=== PATIENT | female | born 1935 | race Two or more races ===

== ENCOUNTER 2021-05-04 10:38 | Inpatient (IN) | payer MEDICAID ==
[~2021-05-04] VITALS: Ht 170.2 cm; Wt 68.0 kg
--- NOTE | 2021-05-04 10:58 | PHYS DOC ---
General Adult EDM: Chief Complaint: CHEST PAIN HPI: HPI: Patient is a 86 year old female who present to ER for evaluation right-sided flank pain that been going on for 2 weeks. Patient said the pain gone away but then she still having chest pain last night that radiated to her jaw area. Patient denies any cough or fever patient denies any nausea vomiting at this time patient had no history of diabetic or hypertension, no previous history of coronary artery disease. Review of Systems: Review of Systems: Constitutional: Denies fever or chills. [] Eyes: Denies change in visual acuity. [] HENT: Denies nasal congestion or sore throat. [] Respiratory: Denies cough or shortness of breath. [] Cardiovascular: Denies chest pain or edema. [] GI: Denies abdominal pain, nausea, vomiting, bloody stools or diarrhea. [] : Denies dysuria. [] Musculoskeletal: Denies back pain or joint pain. [] Integument: Denies rash. [] Neurologic: Denies headache, focal weakness or sensory changes. [] Endocrine: Denies polyuria or polydipsia. [] Lymphatic: Denies swollen glands. [] Psychiatric: Denies depression or anxiety. [] Heart Score: C/O Chest Pain: Yes HEART Score for Chest Pain: HEART Score for Chest Pain Response (Comments) Value History Slighlty/Non-Suspicious 0 ECG Nonspecific Repolarizatio 1 Age > 65 2 Risk Factors 1 or 2 Risk Factors 1 Troponin < Normal Limit 0 Total 4 Risk Factors: Risk Factors: DM, Current or recent (<one month) smoker, HTN, HLP, family history of CAD, obesity. Risk Scores: Score 0 - 3: 2.5% MACE over next 6 weeks - Discharge Home Score 4 - 6: 20.3% MACE over next 6 weeks - Admit for Clinical Observation Score 7 - 10: 72.7% MACE over next 6 weeks - Early Invasive Strategies Physical Exam: PE: Constitutional: Well developed, well nourished, no acute distress, non-toxic appearance. [] HENT: Normocephalic, atraumatic, bilateral external ears normal, oropharynx moist, no oral exudates, nose normal. [] Eyes: PERRLA, EOMI, conjunctiva normal, no discharge. [] Neck: Normal range of motion, no tenderness, supple, no stridor. [] Cardiovascular:Heart rate regular rhythm, no murmur [] Lungs & Thorax: Bilateral breath sounds clear to auscultation [] Abdomen: Bowel sounds normal, soft, There is tenderness in RLQ AREA, no masses, no pulsatile masses. [] Skin: Warm, dry, no erythema, no rash. [] Back: No tenderness, RIGHT CVA tenderness. [] Extremities: No tenderness, no cyanosis, no clubbing, ROM intact, no edema. [] Neurologic: Alert and oriented X 3, normal motor function, normal sensory function, no focal deficits noted. [] Psychologic: Affect normal, judgement normal, mood normal. [] Current Patient Data: Labs: Laboratory Tests Test 05/04/21 10:50 05/04/21 11:28 05/04/21 12:54 05/04/21 14:30 White Blood Count 5.7 x10^3/uL Red Blood Count 3.89 x10^6/uL Hemoglobin 12.5 g/dL Hematocrit 36.3 % Mean Corpuscular Volume 93 fL Mean Corpuscular Hemoglobin 32 pg Mean Corpuscular Hemoglobin Concent 35 g/dL Red Cell Distribution Width 12.6 % Platelet Count 323 x10^3/uL Neutrophils (%) (Auto) 69 % Lymphocytes (%) (Auto) 19 % Monocytes (%) (Auto) 11 % Eosinophils (%) (Auto) 0 % Basophils (%) (Auto) 0 % Neutrophils # (Auto) 3.9 x10^3/uL Lymphocytes # (Auto) 1.1 x10^3/uL Monocytes # (Auto) 0.6 x10^3/uL Eosinophils # (Auto) 0.0 x10^3/uL Basophils # (Auto) 0.0 x10^3/uL Sodium Level 126 mmol/L Potassium Level 3.7 mmol/L Chloride Level 90 mmol/L Carbon Dioxide Level 26 mmol/L Anion Gap 10 Blood Urea Nitrogen 16 mg/dL Creatinine 0.9 mg/dL Estimated GFR (Cockcroft-Gault) 59.2 BUN/Creatinine Ratio 18 Glucose Level 124 mg/dL Calcium Level 9.4 mg/dL Magnesium Level 2.1 mg/dL Total Bilirubin 0.6 mg/dL Aspartate Amino Transf (AST/SGOT) 22 U/L Alanine Aminotransferase (ALT/SGPT) 29 U/L Alkaline Phosphatase 84 U/L Troponin I Quantitative < 0.017 ng/mL < 0.017 ng/mL FN-Cwm-[id number]-Type Natriuretic Peptide 151 pg/mL Total Protein 7.0 g/dL Albumin 3.8 g/dL Albumin/Globulin Ratio 1.2 Triglycerides Level 107 mg/dL Cholesterol Level 223 mg/dL LDL Cholesterol, Calculated 146 mg/dL VLDL Cholesterol, Calculated 21 mg/dL Non-HDL Cholesterol Calculated 167 mg/dL HDL Cholesterol 56 mg/dL Cholesterol/HDL Ratio 4.0 Lipase 184 U/L Urine Collection Type Void Urine Color Yellow Urine Clarity Clear Urine pH 7.0 Urine Specific [place] <=1.005 Urine Protein Negative mg/dL Urine Glucose (UA) Negative mg/dL Urine Ketones (Stick) Negative mg/dL Urine Blood Negative Urine Nitrite Negative Urine Bilirubin Negative Urine Urobilinogen Dipstick 0.2 mg/dL Urine Leukocyte Esterase Small Urine RBC 0 /HPF Urine WBC 1-4 /HPF Urine Squamous Epithelial Cells Occ /LPF Urine Transitional Epithelial Cells Occ /LPF Urine Bacteria 0 /HPF Urine Mucus Slight /LPF SARS-CoV-2 Antigen (Rapid) Negative Current Medications Medications (Trade) Dose Ordered Sig/Danielle Route PRN Reason Start Time Stop Time Status Last Admin Dose Admin Iohexol (Omnipaque 300 Mg/ml) 60 ml 1X ONCE IV 05/04/21 12:15 05/04/21 12:16 DC 05/04/21 12:38 Info (CONTRAST GIVEN -- Rx MONITORING) 1 each PRN DAILY PRN MC SEE COMMENTS 05/04/21 12:15 05/06/21 12:14 EKG: EKG: EKG was done at 1047, heart rate 64 bpm, normal sinus rhythm, no ST segment elevation Radiology/Procedures: Radiology/Procedures: [][facility] [address] [place] [address] IMAGING REPORT Signed PATIENT: STEPHANY PERRIN: [id number] : 1935 LOCATION: ER AGE: 86 SEX: F EXAM STATUS: REG ER ORD. PHYSICIAN: HETAL BURGOS DO REASON: right side abdominal pain PROCEDURE: CT ABD PELV W/ IV CONTRST ONLY Exam Date: 05/04/2021 12:[address] ABDOMEN+PELVIS W Indication: Reason: right side abdominal pain / Spl. Instructions: IV omni 300 60 mls / History: . TECHNIQUE: CT examination of the abdomen and pelvis was performed following the administration of nonionic intravenous contrast. One or more of the following dose reduction techniques were utilized: *Automated exposure control (AEC) *Adjustment of mA and/or kV according to patient size *Use of iterative reconstruction technique *CT scan done according to ALARA, or ALARA/IMAGE GENTLY FINDINGS: The visualized lung bases are clear. The liver, gallbladder, spleen, pancreas, adrenal glands and kidneys are normal. Urinary bladder is normal in appearance. Diverticulosis coli is seen without bowel obstruction or inflammation. The appendix is normal. Moderate atherosclerotic calcifications are seen. No lymphadenopathy or ascites is seen. Degenerative changes are seen in the spine. IMPRESSION: No evidence of acute intra-abdominal pathology. Electronically signed by: Jose Guthrie MD (05/04/2021 1:11 PM) [facility] DICTATED and SIGNED BY: JOSE GUTHRIE MD DATE: 05/04/21 [id number] [facility] [address] [place], [place] [id number] IMAGING REPORT Signed PATIENT: STEPHANY PERRIN: [id number] : 1935 LOCATION: ER AGE: 86 SEX: F EXAM STATUS: PRE ER ORD. PHYSICIAN: HETAL BURGOS DO REASON: chest pain PROCEDURE: PORTABLE CHEST 1V XR CHEST 1V 05/04/2021 10:42 AM INDICATION: Chest pain COMPARISON: None available TECHNIQUE: Portable frontal view of the chest is provided. FINDINGS: The cardiomediastinal silhouette is within normal limits. Lungs are clear. There are no significant pleural effusions. There is no pulmonary vascular congestion. No pneumothorax. No suspicious osseous abnormality. IMPRESSION: There is no acute cardiopulmonary process. Electronically signed by: Zac Aburto MD (05/04/2021 11:10 AM) [facility] DICTATED and SIGNED BY: ZAC ABURTO MD DATE: 05/04/21 [id number] 0 Course & Med Decision Making: Course & Med Decision Making Pertinent Labs and Imaging studies reviewed. (See chart for details) Patient is a 86-year-old female who present to ER due to chest pain that radiates to her jaw area, EKG and cardiac enzymes come back normal so far. Patient has history of hypertension and high cholesterol. Her blood pressure is elevated in the ER, cardiac exam and lab work did not show any acute problem so far. Patient will be admitted observation. Patient had also complained of right abdominal pain, CT scan of abdomen pelvis did not show any acute problem. Her UA showed she had a mILD urinary tract infection. Patient was given 1 g Rocephin IV in ER. Dragon Disclaimer: Dragon Disclaimer: This electronic medical record was generated, in whole or in part, using a voice recognition dictation system. Departure Departure Impression: Primary Impression: Chest pain Additional Impression: UTI (urinary tract infection) Disposition: ADMITTED INPATIENT Admitting Physician: DEZ (DR. MEJIA) Condition: STABLE HETAL BURGOS DO May 04, 2021 10:58
[2021-05-04 11:06] LABS: BASO % 0 % (0-3); EOS % 0 % (0-3); HEMATOCRIT 36.3 % (36.0-47.0); HEMOGLOBIN 12.5 g/dL (12.0-15.5); LYMPH # 1.1 x10^3/uL (1.0-4.8); LYMPH % 19 % (24-48); MEAN CORPUSCULAR HEMOGLOBIN 32 pg (25-35); MEAN CORPUSCULAR HGB CONC 35 g/dL (31-37); MEAN CORPUSCULAR VOLUME 93 fL (79-100); MONO # 0.6 x10^3/uL (0.0-1.1); MONO % 11 % (0-9); NEUT # 3.9 x10^3/uL (1.8-7.7); NEUT % 69 % (31-73); PLATELET COUNT 323 x10^3/uL (140-400); RED BLOOD COUNT 3.89 x10^6/uL (3.50-5.40); RED CELL DISTRIBUTION WIDTH 12.6 % (11.5-14.5); WHITE BLOOD COUNT 5.7 x10^3/uL (4.0-11.0)
--- NOTE | 2021-05-04 11:12 | RAD ---
XR CHEST 1V 05/04/2021 10:42 AM INDICATION: Chest pain COMPARISON: None available TECHNIQUE: Portable frontal view of the chest is provided. FINDINGS: The cardiomediastinal silhouette is within normal limits. Lungs are clear. There are no significant pleural effusions. There is no pulmonary vascular congestion. No pneumothora x. No suspicious osseous abnormality. IMPRESSION: There is no acute cardiopulmonary process. Electronically signed by: Janeen Foley MD (05/04/2021 11:10 AM) [facility]
[2021-05-04 11:13] LABS: CALCIUM 9.4 mg/dL (8.5-10.1); CREATININE 0.9 mg/dL (0.6-1.0); GFR 59.2; POTASSIUM 3.7 mmol/L (3.5-5.1)
[2021-05-04 11:20] LABS: ALBUMIN 3.8 g/dL (3.4-5.0); ALBUMIN/GLOBULIN RATIO 1.2 (1.0-1.7); MAGNESIUM 2.1 mg/dL (1.8-2.4); TOTAL BILIRUBIN 0.6 mg/dL (0.2-1.0)
[2021-05-04 11:55] LABS: BILIRUBIN,URINE NEGATIVE (NEG); CLARITY,URINE CLEAR; COLOR,URINE YELLOW; NITRITE,URINE NEGATIVE (NEG); PROTEIN,URINE NEGATIVE (NEG-TRACE); UROBILINOGEN,URINE 0.2 mg/dL (0.2 mg/dL)
[2021-05-04 12:02] LABS: RBC,URINE 0 /HPF (0-2)
[2021-05-04 12:03] LABS: BACTERIA,URINE 0 /HPF (0-FEW)
[2021-05-04] MEDS ORDERED: IOHEXOL 300 MG/ML 100ML VIAL. IV ONE (12:15)
[2021-05-04] MEDS ORDERED: CONTRAST GIVEN. MC PRN (12:15)
--- NOTE | 2021-05-04 13:14 | RAD ---
Exam Date: 05/04/2021 12:[address] ABDOMEN+PELVIS W Indication: Reason: right side abdominal pain / Spl. Instructions: IV omni 300 60 mls / History: . TECHNIQUE: CT examination of the abdomen and pelvis was performed following the administration of no nionic intravenous contrast. One or more of the following dose reduction techniques were utilized: *Automated exposure control (AEC) *Adjustment of mA and/or kV according to patient size *Use of iterative reconstruction technique *CT scan done according to ALARA, or ALARA/IMAGE GENTLY FINDINGS: The visualized lung bases are clear. The liver, gallbladder, spleen, pancreas, adrenal glands and kidneys are normal. Urinary bladder is normal in appearance. Diverticulosis coli is seen without bowel obstruction or inflammation. The appendix is normal. Moderate atherosclerotic calcifications are seen. No lymphadenopathy or ascites is seen. Degenerative changes are seen in the spine. IMPRESSION: No evidence of acute intra-abdominal pathology. Electronically signed by: Gabino Guthrie MD (05/04/2021 1:11 PM) [facility]
[2021-05-04] MEDS ORDERED: cefTRIAXone IV Push 1 GM VIAL. IVP ONE (14:00)
--- NOTE | 2021-05-04 14:40 | EKG ---
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
--- NOTE | 2021-05-04 14:41 | PDOC1 ---
History and Physical Date of Service: DOS: DATE: 05/04/21 TIME: 14:37 Chief Complaint: Chief Complain: Chest pain. History of Present Illness: HPI: History obtained from discussion with the ED physician and chart review: 86 year old female who present to ER for evaluation right-sided flank pain that been going on for 2 weeks. Patient said the pain gone away but then she still having chest pain last night that radiated to her jaw area. Patient denies any cough or fever patient denies any nausea vomiting at this time patient had no history of diabetic or hypertension, no previous history of coronary artery disease. Past Medical/Surgical History: PMH/PSH: PMHx hypertension, dyslipidemia Allergies: Allergies: Coded Allergies: No Known Drug Allergies (Unverified , 05/04/21) Family History: Family History: Reviewed with no relevant findings Social History: Social History: Denies alcohol, tobacco or drug abuse Current Medications: Current Medications Current Medications Iohexol (Omnipaque 300 Mg/ml) 60 ml 1X ONCE IV Last administered on 05/04/21at 12:38; Start 05/04/21 at 12:15; Stop 05/04/21 at 12:16; Status DC Info (CONTRAST GIVEN -- Rx MONITORING) 1 each PRN DAILY PRN MC SEE COMMENTS; Start 05/04/21 at 12:15; Stop 05/06/21 at 12:14 Ceftriaxone Sodium (Rocephin) 1 gm 1X ONCE IVP ; Start 05/04/21 at 14:00; Stop 05/04/21 at 14:01; Status DC ROS: Review of Systems Review of System REVIEW OF SYSTEMS: GENERAL: Denies weakness SKIN: No bruising, hair changes or rashes. EYES: No blurred, double or loss of vision. NOSE AND THROAT: No history of nosebleeds, hoarseness or sore throat. HEART: Positive for chest pain LUNGS: Denies cough, hemoptysis, wheezing or shortness of breath. GASTROINTESTINAL: Denies changes in appetite, nausea, vomiting, diarrhea or constipation. GENITOURINARY: No history of frequency, urgency, hesitancy or nocturia. NEUROLOGIC: Denies history of numbness, tingling, or tremor. PSYCHIATRIC: No history of panic, anxiety or depression. ENDOCRINE: No history of heat or cold intolerance, polyuria or polydipsia. EXTREMITIES: Denies joint pain, pain on walking or stiffness. Physical Exam: Vital Signs: Vital Signs Date Time Temp Pulse Resp B/P (MAP) Pulse Ox O2 Delivery O2 Flow Rate FiO2 05/04/21 12:17 56 15 153/65 (94) 97 Room Air 05/04/21 10:45 98.3 98.3 Physcial Exam: General: Well developed, well nourished, no acute distress, well appearing HEENT: Pupils equally round and reactive to light, EOMI, no discharge, normal conjunctiva Neck: Supple, no nuchal rigidity, no JVD, trachea midline, no tenderness Cardiac: RRR, no murmurs, no gallops, no rubs Chest/Lungs: CTAB, no wheeze, no rhonchi, no crackles Abdomen: soft, non-distended, no guarding, no peritoneal signs, non-tender Back: No tenderness Extremities: no edema, pulses intact, non-tender,capillary refill <3 sec bilateral upper and lower extremities, Neuro: Alert and oriented x 4, no focal deficits, normal speech Labs: Labs: Laboratory Tests Test 05/04/21 10:50 05/04/21 11:28 05/04/21 12:54 White Blood Count 5.7 x10^3/uL (4.0-11.0) Red Blood Count 3.89 x10^6/uL (3.50-5.40) Hemoglobin 12.5 g/dL (12.0-15.5) Hematocrit 36.3 % (36.0-47.0) Mean Corpuscular Volume 93 fL (79-100) Mean Corpuscular Hemoglobin 32 pg (25-35) Mean Corpuscular Hemoglobin Concent 35 g/dL (31-37) Red Cell Distribution Width 12.6 % (11.5-14.5) Platelet Count 323 x10^3/uL (140-400) Neutrophils (%) (Auto) 69 % (31-73) Lymphocytes (%) (Auto) 19 % (24-48) Monocytes (%) (Auto) 11 % (0-9) Eosinophils (%) (Auto) 0 % (0-3) Basophils (%) (Auto) 0 % (0-3) Neutrophils # (Auto) 3.9 x10^3/uL (1.8-7.7) Lymphocytes # (Auto) 1.1 x10^3/uL (1.0-4.8) Monocytes # (Auto) 0.6 x10^3/uL (0.0-1.1) Eosinophils # (Auto) 0.0 x10^3/uL (0.0-0.7) Basophils # (Auto) 0.0 x10^3/uL (0.0-0.2) Sodium Level 126 mmol/L (136-145) Potassium Level 3.7 mmol/L (3.5-5.1) Chloride Level 90 mmol/L (98-107) Carbon Dioxide Level 26 mmol/L (21-32) Anion Gap 10 (6-14) Blood Urea Nitrogen 16 mg/dL (7-20) Creatinine 0.9 mg/dL (0.6-1.0) Estimated GFR (Cockcroft-Gault) 59.2 BUN/Creatinine Ratio 18 (6-20) Glucose Level 124 mg/dL (70-99) Calcium Level 9.4 mg/dL (8.5-10.1) Magnesium Level 2.1 mg/dL (1.8-2.4) Total Bilirubin 0.6 mg/dL (0.2-1.0) Aspartate Amino Transf (AST/SGOT) 22 U/L (15-37) Alanine Aminotransferase (ALT/SGPT) 29 U/L (14-59) Alkaline Phosphatase 84 U/L (46-116) Troponin I Quantitative < 0.017 ng/mL (0.000-0.055) GN-Suc-N-Type Natriuretic Peptide 151 pg/mL (0-449) Total Protein 7.0 g/dL (6.4-8.2) Albumin 3.8 g/dL (3.4-5.0) Albumin/Globulin Ratio 1.2 (1.0-1.7) Lipase 184 U/L (73-393) Urine Collection Type Void Urine Color Yellow Urine Clarity Clear Urine pH 7.0 (<5.0-8.0) Urine Specific [place] <=1.005 (1.000-1.030) Urine Protein Negative mg/dL (NEG-TRACE) Urine Glucose (UA) Negative mg/dL (NEG) Urine Ketones (Stick) Negative mg/dL (NEG) Urine Blood Negative (NEG) Urine Nitrite Negative (NEG) Urine Bilirubin Negative (NEG) Urine Urobilinogen Dipstick 0.2 mg/dL (0.2 mg/dL) Urine Leukocyte Esterase Small (NEG) Urine RBC 0 /HPF (0-2) Urine WBC 1-4 /HPF (0-4) Urine Squamous Epithelial Cells Occ /LPF Urine Transitional Epithelial Cells Occ /LPF Urine Bacteria 0 /HPF (0-FEW) Urine Mucus Slight /LPF SARS-CoV-2 Antigen (Rapid) Negative (NEGATIVE) Laboratory Tests Test 05/04/21 10:50 05/04/21 11:28 05/04/21 12:54 White Blood Count 5.7 x10^3/uL (4.0-11.0) Red Blood Count 3.89 x10^6/uL (3.50-5.40) Hemoglobin 12.5 g/dL (12.0-15.5) Hematocrit 36.3 % (36.0-47.0) Mean Corpuscular Volume 93 fL (79-100) Mean Corpuscular Hemoglobin 32 pg (25-35) Mean Corpuscular Hemoglobin Concent 35 g/dL (31-37) Red Cell Distribution Width 12.6 % (11.5-14.5) Platelet Count 323 x10^3/uL (140-400) Neutrophils (%) (Auto) 69 % (31-73) Lymphocytes (%) (Auto) 19 % (24-48) Monocytes (%) (Auto) 11 % (0-9) Eosinophils (%) (Auto) 0 % (0-3) Basophils (%) (Auto) 0 % (0-3) Neutrophils # (Auto) 3.9 x10^3/uL (1.8-7.7) Lymphocytes # (Auto) 1.1 x10^3/uL (1.0-4.8) Monocytes # (Auto) 0.6 x10^3/uL (0.0-1.1) Eosinophils # (Auto) 0.0 x10^3/uL (0.0-0.7) Basophils # (Auto) 0.0 x10^3/uL (0.0-0.2) Sodium Level 126 mmol/L (136-145) Potassium Level 3.7 mmol/L (3.5-5.1) Chloride Level 90 mmol/L (98-107) Carbon Dioxide Level 26 mmol/L (21-32) Anion Gap 10 (6-14) Blood Urea Nitrogen 16 mg/dL (7-20) Creatinine 0.9 mg/dL (0.6-1.0) Estimated GFR (Cockcroft-Gault) 59.2 BUN/Creatinine Ratio 18 (6-20) Glucose Level 124 mg/dL (70-99) Calcium Level 9.4 mg/dL (8.5-10.1) Magnesium Level 2.1 mg/dL (1.8-2.4) Total Bilirubin 0.6 mg/dL (0.2-1.0) Aspartate Amino Transf (AST/SGOT) 22 U/L (15-37) Alanine Aminotransferase (ALT/SGPT) 29 U/L (14-59) Alkaline Phosphatase 84 U/L (46-116) Troponin I Quantitative < 0.017 ng/mL (0.000-0.055) ED-Wkp-D-Type Natriuretic Peptide 151 pg/mL (0-449) Total Protein 7.0 g/dL (6.4-8.2) Albumin 3.8 g/dL (3.4-5.0) Albumin/Globulin Ratio 1.2 (1.0-1.7) Lipase 184 U/L (73-393) Urine Collection Type Void Urine Color Yellow Urine Clarity Clear Urine pH 7.0 (<5.0-8.0) Urine Specific [place] <=1.005 (1.000-1.030) Urine Protein Negative mg/dL (NEG-TRACE) Urine Glucose (UA) Negative mg/dL (NEG) Urine Ketones (Stick) Negative mg/dL (NEG) Urine Blood Negative (NEG) Urine Nitrite Negative (NEG) Urine Bilirubin Negative (NEG) Urine Urobilinogen Dipstick 0.2 mg/dL (0.2 mg/dL) Urine Leukocyte Esterase Small (NEG) Urine RBC 0 /HPF (0-2) Urine WBC 1-4 /HPF (0-4) Urine Squamous Epithelial Cells Occ /LPF Urine Transitional Epithelial Cells Occ /LPF Urine Bacteria 0 /HPF (0-FEW) Urine Mucus Slight /LPF SARS-CoV-2 Antigen (Rapid) Negative (NEGATIVE) Images: Images CXR Impression: 1. No acute cardiopulmonary process. PROCEDURE: CT ABD PELV W/ IV CONTRST ONLY Exam Date: 05/04/2021 12:[address] ABDOMEN+PELVIS W Indication: Reason: right side abdominal pain / Spl. Instructions: IV omni 300 60 mls / History: . TECHNIQUE: CT examination of the abdomen and pelvis was performed following the administration of nonionic intravenous contrast. One or more of the following dose reduction techniques were utilized: *Automated exposure control (AEC) *Adjustment of mA and/or kV according to patient size *Use of iterative reconstruction technique *CT scan done according to ALARA, or ALARA/IMAGE GENTLY FINDINGS: The visualized lung bases are clear. The liver, gallbladder, spleen, pancreas, adrenal glands and kidneys are normal. Urinary bladder is normal in appearance. Diverticulosis coli is seen without bowel obstruction or inflammation. The appendix is normal. Moderate atherosclerotic calcifications are seen. No lymphadenopathy or ascites is seen. Degenerative changes are seen in the spine. IMPRESSION: No evidence of acute intra-abdominal pathology. Assessment/Plan Assessment/Plan Chest pain concerning for unstable angina/NSTEMI History of hypertension History of dyslipidemia EKG showing no acute ST elevations Troponin negative x1 Continue aspirin, consider Plavix if intermediate risk will defer this to cardiology Cardiology consulted for predischarge stress testing or left heart cath Continue nitroglycerin as needed for pain Continue beta-jad if blood pressures allow Continue high intensity statins IV morphine as needed Consider Lovenox Maintain O2 sats between 88 to 95% Trend troponins Repeat EKG in the a.m. Continue telemetry monitoring Monitor for electrolyte abnormalities Avoid NSAIDs In addition to E/M visit, advanced care planning was done: A total time of 20 minutes was spent from 1600 to 1620 face to face in discussion with the patient and family regarding their goals of care, and CODE status Justifications for Admission Other Justification DANTE MEJIA MD May 04, 2021 14:41
[2021-05-04] MEDS ORDERED: PROCHLORPERAZINE 10 MG/2 ML VIAL. IV PRN (14:45)
[2021-05-04] MEDS ORDERED: MORPHINE SULFATE 2 MG/ML INJ. IV PRN (14:45)
[2021-05-04] MEDS ORDERED: ONDANSETRON PF 4 MG/2 ML VIAL. IVP PRN (14:45)
[2021-05-04] MEDS ORDERED: SENNOSIDES 8.6 MG TABLET PO PRN (14:45)
[2021-05-04] MEDS ORDERED: DOCUSATE SODIUM 100 MG CAPSULE. PO PRN (14:45)
[2021-05-04] MEDS ORDERED: DEXTROSE 50% 25 GM / 50ML DISP.SYRIN. IV PRN (14:45)
[2021-05-04] MEDS ORDERED: ACETAMINOPHEN 325 MG TABLET. PO PRN (14:45)
[2021-05-04] MEDS ORDERED: MORPHINE SULFATE 2 MG/ML INJ. IVP PRN (14:45)
[2021-05-04] MEDS ORDERED: CHLO25TA10 PO ×2 (14:51→15:34)
[2021-05-04] MEDS ORDERED: ENOXAPARIN 40 MG/0.4 ML SYRINGE. SQ SCH (15:00)
[2021-05-04] MEDS ORDERED: LORazepam 0.5 MG TABLET PO PRN (15:15)
[2021-05-04] MEDS: CHLORTHALIDONE 25 MG TABLET. PO SCH (15:15)
[2021-05-04] MEDS: IV NORMAL SALINE 1000ML BAG 1,000 ML IV SCH (15:49)
[2021-05-04 16:05] VITALS: BP 162/70
[2021-05-04 19:50] VITALS: BP 134/61
[2021-05-04 22:45] VITALS: BP 116/58
[2021-05-05] MEDS: IV NORMAL SALINE 1000ML BAG 1,000 ML IV SCH ×2 (01:37→08:33)
[2021-05-05 02:50] VITALS: BP 136/63
[2021-05-05 04:58] LABS: BASO % 1 % (0-3); EOS # 0.1 x10^3/uL (0.0-0.7); EOS % 2 % (0-3); HEMATOCRIT 33.9 % (36.0-47.0); HEMOGLOBIN 11.7 g/dL (12.0-15.5); LYMPH # 1.3 x10^3/uL (1.0-4.8); LYMPH % 32 % (24-48); MEAN CORPUSCULAR HEMOGLOBIN 33 pg (25-35); MEAN CORPUSCULAR HGB CONC 35 g/dL (31-37); MEAN CORPUSCULAR VOLUME 95 fL (79-100); MONO # 0.6 x10^3/uL (0.0-1.1); MONO % 16 % (0-9); NEUT % 50 % (31-73); PLATELET COUNT 284 x10^3/uL (140-400); RED BLOOD COUNT 3.59 x10^6/uL (3.50-5.40); RED CELL DISTRIBUTION WIDTH 12.9 % (11.5-14.5)
[2021-05-05 05:13] LABS: CALCIUM 8.8 mg/dL (8.5-10.1); CREATININE 0.8 mg/dL (0.6-1.0); GFR 67.8; PHOSPHORUS 3.6 mg/dL (2.6-4.7); POTASSIUM 3.7 mmol/L (3.5-5.1)
[2021-05-05 07:00] VITALS: BP 128/60
[2021-05-05] MEDS ORDERED: ASPIRIN ENTERIC COATED 81 MG TABLET.DR. PO SCH (08:00)
[2021-05-05] MEDS: CHLORTHALIDONE 25 MG TABLET. PO SCH (08:28)
[2021-05-05 11:00] VITALS: BP 150/67
--- NOTE | 2021-05-05 11:49 | PDOC ---
[employer] PROGRESS NOTE Date of Service DOS: DATE: 05/05/21 TIME: 11:47 Chief Complaint Chief Complaint Chest pain concerning for unstable angina/NSTEMI initially, ruled out. likely due to GERD and hyponatremia, corrected History of hypertension History of dyslipidemia Hyponatremia Plan: EKG showing no acute ST elevations Troponin negative x3 Continue aspirin, consider Plavix if intermediate risk will defer this to cardiology Continue nitroglycerin as needed for pain Continue high intensity statins Monitor for electrolyte abnormalities Avoid NSAIDs History of Present Illness History of Present Illness 86 year old female who present to ER for evaluation right-sided flank pain that been going on for 2 weeks. Patient said the pain gone away but then she still having chest pain last night that radiated to her jaw area. Patient denies any cough or fever patient denies any nausea vomiting at this time patient had no history of diabetic or hypertension, no previous history of coronary artery disease. Hb 11.7, Covid returned negative, LDL 146, troponins x3 negative, NA improved from 126-->135. Held chlorthalidone. D/w family to transition to amlodipine and f/u outpatient Vitals/I&O Vitals/I&O: Vital Signs Date Time Temp Pulse Resp B/P (MAP) Pulse Ox O2 Delivery O2 Flow Rate FiO2 05/05/21 08:00 Room Air 05/05/21 07:00 98.4 61 16 128/60 (82) 97 98.4 I & O 05/04/21 05/04/21 05/05/21 15:00 23:00 07:00 Intake Total 250 ml 240 ml Balance 250 ml 240 ml Physical Exam General: Alert, Oriented X3, Cooperative Heart: Regular rate, Normal S1, Normal S2 Lungs: Clear Abdomen: Normal bowel sounds, Soft Extremities: No clubbing, No cyanosis Skin: No rashes, No breakdown Labs Labs: Laboratory Tests Test 05/04/21 12:54 05/04/21 14:30 05/04/21 18:13 05/05/21 04:20 SARS-CoV-2 RNA (NIHARIKA) Negative (Negative) SARS-CoV-2 Antigen (Rapid) Negative (NEGATIVE) Troponin I Quantitative < 0.017 ng/mL (0.000-0.055) < 0.017 ng/mL (0.000-0.055) White Blood Count 4.0 x10^3/uL (4.0-11.0) Red Blood Count 3.59 x10^6/uL (3.50-5.40) Hemoglobin 11.7 g/dL (12.0-15.5) Hematocrit 33.9 % (36.0-47.0) Mean Corpuscular Volume 95 fL (79-100) Mean Corpuscular Hemoglobin 33 pg (25-35) Mean Corpuscular Hemoglobin Concent 35 g/dL (31-37) Red Cell Distribution Width 12.9 % (11.5-14.5) Platelet Count 284 x10^3/uL (140-400) Neutrophils (%) (Auto) 50 % (31-73) Lymphocytes (%) (Auto) 32 % (24-48) Monocytes (%) (Auto) 16 % (0-9) Eosinophils (%) (Auto) 2 % (0-3) Basophils (%) (Auto) 1 % (0-3) Neutrophils # (Auto) 2.0 x10^3/uL (1.8-7.7) Lymphocytes # (Auto) 1.3 x10^3/uL (1.0-4.8) Monocytes # (Auto) 0.6 x10^3/uL (0.0-1.1) Eosinophils # (Auto) 0.1 x10^3/uL (0.0-0.7) Basophils # (Auto) 0.0 x10^3/uL (0.0-0.2) Sodium Level 135 mmol/L (136-145) Potassium Level 3.7 mmol/L (3.5-5.1) Chloride Level 100 mmol/L (98-107) Carbon Dioxide Level 27 mmol/L (21-32) Anion Gap 8 (6-14) Blood Urea Nitrogen 12 mg/dL (7-20) Creatinine 0.8 mg/dL (0.6-1.0) Estimated GFR (Cockcroft-Gault) 67.8 Glucose Level 88 mg/dL (70-99) Calcium Level 8.8 mg/dL (8.5-10.1) Phosphorus Level 3.6 mg/dL (2.6-4.7) Magnesium Level 2.0 mg/dL (1.8-2.4) Assessment and Plan Assessmemt and Plan Problems Medical Problems: (1) Chest pain Status: Acute (2) UTI (urinary tract infection) Status: Acute Comment Review of Relevant I have reviewed the following items spenser (where applicable) has been applied. Medications: Current Medications Medications (Trade) Dose Ordered Sig/Danielle Route PRN Reason Start Time Stop Time Status Last Admin Dose Admin Iohexol (Omnipaque 300 Mg/ml) 60 ml 1X ONCE IV 05/04/21 12:15 05/04/21 12:16 DC 05/04/21 12:38 Ceftriaxone Sodium (Rocephin) 1 gm 1X ONCE IVP 05/04/21 14:00 05/04/21 14:01 DC 05/04/21 15:49 Aspirin (Ecotrin) 81 mg [id number] PO 05/05/21 08:00 05/05/21 08:28 Sodium Chloride 1,000 ml @ 100 mls/hr Q10H IV 05/04/21 14:45 05/05/21 14:44 05/05/21 08:33 Enoxaparin Sodium (Lovenox 40mg Syringe) 40 mg Q24H SQ 05/04/21 15:00 05/04/21 17:20 Chlorthalidone (Thalitone) 25 mg DAILY PO 05/04/21 15:15 05/05/21 08:28 Lorazepam (Ativan) 0.5 mg PRN Q8HRS PRN PO ANXIETY / AGITATION 05/04/21 15:15 05/04/21 21:38 Justifications for Admission Other Justification Chest pain. NICOLAS LUTZ MD May 05, 2021 11:49
--- NOTE | 2021-05-05 11:56 | NUR ---
SS following for discharge planning. SS reviewed pt chart and discussed with pt RN. Pt is from home with family and is currently on room air. COVID19 negative. Urine culture pending for UTI. Pt getting IV Rocephin today. Discharge plan is currently to home when medically ready for discharge. SS will continue to follow for discharge planning.
[2021-05-05] MEDS ORDERED: cefTRIAXone IV Push 1 GM VIAL. IVP ONE (12:00)
[2021-05-05] MEDS ORDERED: AMLO-186 PO (13:10)
[2021-05-05] MEDS ORDERED: CEFD300C PO (13:11)
--- NOTE | 2021-05-05 13:16 | PDOC3 ---
Discharge Summary Visit Information Date of Admission: May 04, 2021 Date of Discharge: May 05, 2021 Admitting Diagnosis: Chest pain Final Diagnosis Problems Medical Problems: (1) Chest pain Status: Acute (2) UTI (urinary tract infection) Status: Acute Brief Hospital Course Allergies Allergies Coded Allergies Type Severity Reaction Last Updated Verified No Known Drug Allergies 05/04/21 No Vital Signs Vital Signs Date Time Temp Pulse Resp B/P (MAP) Pulse Ox O2 Delivery O2 Flow Rate FiO2 05/05/21 11:00 98.2 62 18 150/67 (94) 97 Nasal Cannula 98.2 Lab Results Laboratory Tests Test 05/04/21 10:50 05/04/21 11:28 05/04/21 12:54 05/04/21 14:30 White Blood Count 5.7 x10^3/uL (4.0-11.0) Red Blood Count 3.89 x10^6/uL (3.50-5.40) Hemoglobin 12.5 g/dL (12.0-15.5) Hematocrit 36.3 % (36.0-47.0) Mean Corpuscular Volume 93 fL (79-100) Mean Corpuscular Hemoglobin 32 pg (25-35) Mean Corpuscular Hemoglobin Concent 35 g/dL (31-37) Red Cell Distribution Width 12.6 % (11.5-14.5) Platelet Count 323 x10^3/uL (140-400) Neutrophils (%) (Auto) 69 % (31-73) Lymphocytes (%) (Auto) 19 % (24-48) Monocytes (%) (Auto) 11 % (0-9) Eosinophils (%) (Auto) 0 % (0-3) Basophils (%) (Auto) 0 % (0-3) Neutrophils # (Auto) 3.9 x10^3/uL (1.8-7.7) Lymphocytes # (Auto) 1.1 x10^3/uL (1.0-4.8) Monocytes # (Auto) 0.6 x10^3/uL (0.0-1.1) Eosinophils # (Auto) 0.0 x10^3/uL (0.0-0.7) Basophils # (Auto) 0.0 x10^3/uL (0.0-0.2) Sodium Level 126 mmol/L (136-145) Potassium Level 3.7 mmol/L (3.5-5.1) Chloride Level 90 mmol/L (98-107) Carbon Dioxide Level 26 mmol/L (21-32) Anion Gap 10 (6-14) Blood Urea Nitrogen 16 mg/dL (7-20) Creatinine 0.9 mg/dL (0.6-1.0) Estimated GFR (Cockcroft-Gault) 59.2 BUN/Creatinine Ratio 18 (6-20) Glucose Level 124 mg/dL (70-99) Calcium Level 9.4 mg/dL (8.5-10.1) Magnesium Level 2.1 mg/dL (1.8-2.4) Total Bilirubin 0.6 mg/dL (0.2-1.0) Aspartate Amino Transf (AST/SGOT) 22 U/L (15-37) Alanine Aminotransferase (ALT/SGPT) 29 U/L (14-59) Alkaline Phosphatase 84 U/L (46-116) Troponin I Quantitative < 0.017 ng/mL (0.000-0.055) < 0.017 ng/mL (0.000-0.055) VO-Dpb-F-Type Natriuretic Peptide 151 pg/mL (0-449) Total Protein 7.0 g/dL (6.4-8.2) Albumin 3.8 g/dL (3.4-5.0) Albumin/Globulin Ratio 1.2 (1.0-1.7) Triglycerides Level 107 mg/dL (0-150) Cholesterol Level 223 mg/dL (0-200) LDL Cholesterol, Calculated 146 mg/dL (0-100) VLDL Cholesterol, Calculated 21 mg/dL (0-40) Non-HDL Cholesterol Calculated 167 mg/dL (0-129) HDL Cholesterol 56 mg/dL (40-60) Cholesterol/HDL Ratio 4.0 Lipase 184 U/L (73-393) Urine Collection Type Void Urine Color Yellow Urine Clarity Clear Urine pH 7.0 (<5.0-8.0) Urine Specific [place] <=1.005 (1.000-1.030) Urine Protein Negative mg/dL (NEG-TRACE) Urine Glucose (UA) Negative mg/dL (NEG) Urine Ketones (Stick) Negative mg/dL (NEG) Urine Blood Negative (NEG) Urine Nitrite Negative (NEG) Urine Bilirubin Negative (NEG) Urine Urobilinogen Dipstick 0.2 mg/dL (0.2 mg/dL) Urine Leukocyte Esterase Small (NEG) Urine RBC 0 /HPF (0-2) Urine WBC 1-4 /HPF (0-4) Urine Squamous Epithelial Cells Occ /LPF Urine Transitional Epithelial Cells Occ /LPF Urine Bacteria 0 /HPF (0-FEW) Urine Mucus Slight /LPF SARS-CoV-2 RNA (NIHARIKA) Negative (Negative) SARS-CoV-2 Antigen (Rapid) Negative (NEGATIVE) Test 05/04/21 18:13 05/05/21 04:20 Troponin I Quantitative < 0.017 ng/mL (0.000-0.055) White Blood Count 4.0 x10^3/uL (4.0-11.0) Red Blood Count 3.59 x10^6/uL (3.50-5.40) Hemoglobin 11.7 g/dL (12.0-15.5) Hematocrit 33.9 % (36.0-47.0) Mean Corpuscular Volume 95 fL (79-100) Mean Corpuscular Hemoglobin 33 pg (25-35) Mean Corpuscular Hemoglobin Concent 35 g/dL (31-37) Red Cell Distribution Width 12.9 % (11.5-14.5) Platelet Count 284 x10^3/uL (140-400) Neutrophils (%) (Auto) 50 % (31-73) Lymphocytes (%) (Auto) 32 % (24-48) Monocytes (%) (Auto) 16 % (0-9) Eosinophils (%) (Auto) 2 % (0-3) Basophils (%) (Auto) 1 % (0-3) Neutrophils # (Auto) 2.0 x10^3/uL (1.8-7.7) Lymphocytes # (Auto) 1.3 x10^3/uL (1.0-4.8) Monocytes # (Auto) 0.6 x10^3/uL (0.0-1.1) Eosinophils # (Auto) 0.1 x10^3/uL (0.0-0.7) Basophils # (Auto) 0.0 x10^3/uL (0.0-0.2) Sodium Level 135 mmol/L (136-145) Potassium Level 3.7 mmol/L (3.5-5.1) Chloride Level 100 mmol/L (98-107) Carbon Dioxide Level 27 mmol/L (21-32) Anion Gap 8 (6-14) Blood Urea Nitrogen 12 mg/dL (7-20) Creatinine 0.8 mg/dL (0.6-1.0) Estimated GFR (Cockcroft-Gault) 67.8 Glucose Level 88 mg/dL (70-99) Calcium Level 8.8 mg/dL (8.5-10.1) Phosphorus Level 3.6 mg/dL (2.6-4.7) Magnesium Level 2.0 mg/dL (1.8-2.4) Laboratory Tests Test 05/04/21 14:30 05/04/21 18:13 05/05/21 04:20 Troponin I Quantitative < 0.017 ng/mL (0.000-0.055) < 0.017 ng/mL (0.000-0.055) White Blood Count 4.0 x10^3/uL (4.0-11.0) Red Blood Count 3.59 x10^6/uL (3.50-5.40) Hemoglobin 11.7 g/dL (12.0-15.5) Hematocrit 33.9 % (36.0-47.0) Mean Corpuscular Volume 95 fL (79-100) Mean Corpuscular Hemoglobin 33 pg (25-35) Mean Corpuscular Hemoglobin Concent 35 g/dL (31-37) Red Cell Distribution Width 12.9 % (11.5-14.5) Platelet Count 284 x10^3/uL (140-400) Neutrophils (%) (Auto) 50 % (31-73) Lymphocytes (%) (Auto) 32 % (24-48) Monocytes (%) (Auto) 16 % (0-9) Eosinophils (%) (Auto) 2 % (0-3) Basophils (%) (Auto) 1 % (0-3) Neutrophils # (Auto) 2.0 x10^3/uL (1.8-7.7) Lymphocytes # (Auto) 1.3 x10^3/uL (1.0-4.8) Monocytes # (Auto) 0.6 x10^3/uL (0.0-1.1) Eosinophils # (Auto) 0.1 x10^3/uL (0.0-0.7) Basophils # (Auto) 0.0 x10^3/uL (0.0-0.2) Sodium Level 135 mmol/L (136-145) Potassium Level 3.7 mmol/L (3.5-5.1) Chloride Level 100 mmol/L (98-107) Carbon Dioxide Level 27 mmol/L (21-32) Anion Gap 8 (6-14) Blood Urea Nitrogen 12 mg/dL (7-20) Creatinine 0.8 mg/dL (0.6-1.0) Estimated GFR (Cockcroft-Gault) 67.8 Glucose Level 88 mg/dL (70-99) Calcium Level 8.8 mg/dL (8.5-10.1) Phosphorus Level 3.6 mg/dL (2.6-4.7) Magnesium Level 2.0 mg/dL (1.8-2.4) Brief Hospital Course 86 year old female who present to ER for evaluation right-sided flank pain that been going on for 2 weeks. Patient said the pain gone away but then she still having chest pain last night that radiated to her jaw area. Patient denies any cough or fever patient denies any nausea vomiting at this time patient had no history of diabetic or hypertension, no previous history of coronary artery disease. Hb 11.7, Covid returned negative, LDL 146, troponins x3 negative, NA improved f rom 126-->135. Held chlorthalidone. D/w family to transition to amlodipine and f/u outpatient Home on amlodipine and cefdinir for UTI Problem list: Chest pain concerning for unstable angina/NSTEMI initially, ruled out. likely due to GERD and hyponatremia, corrected History of hypertension History of dyslipidemia Hyponatremia -stop chlorthalidone UTI - x2 doses rocephin and cefdinir on d/c Plan: EKG showing no acute ST elevations Troponin negative x3 Continue aspirin, consider Plavix if intermediate risk will defer this to cardiology Continue nitroglycerin as needed for pain Continue high intensity statins Monitor for electrolyte abnormalities Avoid NSAIDs Greater than 30 minutes spent on d/c home Discharge Information Condition at Discharge: Improved Follow Up: Weeks (1) Disposition/Orders: D/C to Home Scheduled Amlodipine Besylate (Amlodipine Besylate) 5 Mg Tablet, 5 MG PO DAILY for HTN for 30 Days, #30 Ref 5 Prescribed by: NICOLAS LUTZ MD on 05/05/21 1310 Cefdinir (Cefdinir) 300 Mg Capsule, 300 MG PO BID for UTI for 1 Days, #2 Ref 0 Prescribed by: NICOLAS LUTZ MD on 05/05/21 1311 Discontinued Medications Chlorthalidone (Chlorthalidone ) 25 Mg Tablet, 12.5 MG PO DAILY PRN for HYP ERTENSION, (Reported) Entered as Reported by: TIM OLIVERA on 05/04/211450 Last Taken: Unknown Dose on 05/04/21 0800 Last Action: New Order on 05/04/211450 by TIM OLIVERA Chlorthalidone (Chlorthalidone ) 25 Mg Tablet, 12.5 MG PO DAILY for DIURETIC, (Reported) Entered as Reported by: PEMA ONEILL on 05/04/211533 Last Taken: Unknown Dose on 05/04/21 Last Action: New Order on 05/04/211533 by PEMA ONEILL Justicifation of Admission Dx: Justifications for Admission: Justification of Admission Dx: Yes CHF: Sev. Electrolyte Abnormal NICOLAS LUTZ MD May 05, 2021 13:16
--- NOTE | 2021-05-05 14:09 | NUR ---
Discharge Note: [facility] Discharge instructions and discharge home medications reviewed with Patient and a copy given. Instructions printed in Afghan and Yemeni. Patients daughters translated. All questions have been answered and understanding verbalized. Prescriptions have been sent to patients pharmacy per physician. The following instructions and handouts were given: UTI, hyponatremia Discontinued lines and drains: Peripheral IV intact. Patient discharged to Home or Self Care with Family Member via Wheelchair. Daughters at bedside
== END 2021-05-05 14:19 | disposition home or self-care (01) | DRG 690 ==
LOC: ER 10:38 → 6 SOUTH 13:44
PROVIDERS: ADMIT Internal Medicine; ATTEND Internal Medicine
DX: N39.0 Urinary tract infection, site not specified (principal); E87.1 Hypo-osmolality and hyponatremia; K21.9 Gastro-esophageal reflux disease without esophagitis; E78.5 Hyperlipidemia, unspecified; I10 Essential (primary) hypertension; K57.30 Diverticulosis of large intestine without perforation or abscess without bleeding
CPT/HCPCS: 36415; 71045; 74177; 80048; 80053; 80061; 81001; 83690; 83735; 83880; 84100; 84484; 85025; 87086; 87426; 93005; 96374; J0696; J1650; J7030; Q9967; U0003; U0005; 99285-25; G0378